=== PATIENT | female | born 1975 | race Caucasian/White ===

== ENCOUNTER 2018-08-24 09:58 | Emergency (ER) | payer OTHER, SELFPAY | END 2018-08-24 10:40 | disposition home or self-care (01) | LOC: BURERS 09:58 | DX: G43.909 Migraine, unspecified, not intractable, without status migrainosus (principal) | CPT/HCPCS: 99283 ==

== ENCOUNTER 2018-10-15 08:45 | Emergency (ER) | payer SELFPAY | END 2018-10-15 09:30 | disposition home or self-care (01) | LOC: BURERS 08:45 | DX: J02.9 Acute pharyngitis, unspecified (principal); G43.909 Migraine, unspecified, not intractable, without status migrainosus; Z79.899 Other long term (current) drug therapy | CPT/HCPCS: 87081; 87430; 99283 ==

== ENCOUNTER 2019-04-14 12:58 | Emergency (ER) | payer SELFPAY | END 2019-04-14 13:23 | disposition home or self-care (01) | LOC: BURERS 12:58 | DX: S61.411A Laceration without foreign body of right hand, initial encounter (principal); W45.8XXA Other foreign body or object entering through skin, initial encounter | CPT/HCPCS: 99282 ==